=== PATIENT | male | born 1980 | race Caucasian/White ===

== ENCOUNTER 2016-11-22 09:47 | Emergency (ER) | payer SELFPAY ==
[~2016-11-22] VITALS: Ht 177.8 cm; Wt 104.3 kg
[~2016-11-22 09:47] MED LIST: METH5TAB2 PO
[2016-11-22 10:20] VITALS: BP 131/60
--- NOTE | 2016-11-22 10:27 | PHYS DOC ---
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 Patient states he was driving to [place] this morning when he developed palpitations. Patient states he felt his heart was pumping harder and faster. Patient states he takes energy drinks every day and had taken an energy drink earlier today. Patient denies any symptoms right now. As we talked informed patient will do some labs get an EKG as well as chest x-ray. Patient immediately requested to be discharged. Patient states he is feeling better. He states he has no symptoms right now. Informed him he will have sign out AMA considering he has not been worked up. He signed out AMA. Informed patient he can follow-up with his own primary care doctor or public weigher as soon as possible. Instructed him to return to the ED at any point he has concerning symptoms. Review of Systems Review of Systems Constitutional: Denies fever or chills [] Eyes: Denies change in visual acuity, redness, or eye pain [] HENT: Denies nasal congestion or sore throat [] Respiratory: Denies cough or shortness of breath [] Cardiovascular: Palpitations GI: Denies abdominal pain, nausea, vomiting, bloody stools or diarrhea [] : Denies dysuria or hematuria [] Musculoskeletal: Denies back pain or joint pain [] Integument: Denies rash or skin lesions [] Neurologic: Denies headache, focal weakness or sensory changes [] Endocrine: Denies polyuria or polydipsia [] Allergies Allergies Allergies Coded Allergies Type Severity Reaction Last Updated Verified aspirin Adverse Reaction Severe 06/30/13 Yes Physical Exam Physical Exam Constitutional: Well developed, well nourished, no acute distress, non-toxic appearance. [] HENT: Normocephalic, atraumatic, bilateral external ears normal, oropharynx moist, no oral exudates, nose normal. [] Eyes: PERRLA, EOMI, conjunctiva normal, no discharge. [] Neck: Normal range of motion, no tenderness, supple, no stridor. [] Cardiovascular:Heart rate regular rhythm, no murmur [] Lungs & Thorax: Bilateral breath sounds clear to auscultation [] Abdomen: Bowel sounds normal, soft, no tenderness, no masses, no pulsatile masses. [] Skin: Warm, dry, no erythema, no rash. [] Back: No tenderness, no CVA tenderness. [] Extremities: No tenderness, no cyanosis, no clubbing, ROM intact, no edema. [] Neurologic: Alert and oriented X 3, normal motor function, normal sensory function, no focal deficits noted. [] Psychologic: Affect normal, judgement normal, mood normal. [] Current Patient Data Vital Signs Vital Signs Date Time Temp Pulse Resp B/P Pulse Ox O2 Delivery O2 Flow Rate FiO2 11/22/16 09:55 99.2 77 18 147/89 98 Room Air 99.2 EKG EKG [] Radiology/Procedures Radiology/Procedures [] Course & Med Decision Making Course & Med Decision Making Pertinent Labs and Imaging studies reviewed. (See chart for details) Please see history of present illness. Patient signed out AMA when we told him was going to do labs, EKG, urine and chest x-ray. Dragon Disclaimer Dragon Disclaimer This electronic medical record was generated, in whole or in part, using a voice recognition dictation system. Departure Departure Impression: Primary Impression: Palpitations Disposition: 07 AGAINST MEDICAL ADVICE Condition: STABLE Referrals: NON,STAFF (PCP) Please follow-up with your doctor in the next 1-3 days. Patient Instructions: Palpitations, [id number] Additional Instructions: You were seen for palpitations. You decided to sign out AGAINST MEDICAL ADVICE. We will come back to the ED at any point if you choose to. ROSE MARY BREWER APRN Nov 22, 2016 10:27
--- NOTE | 2016-11-22 12:50 | EKG ---
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
== END 2016-11-22 10:33 | disposition left against medical advice (07) ==
LOC: ER 09:47
DX: R00.2 Palpitations (principal); F11.10 Opioid abuse, uncomplicated; Z88.6 Allergy status to analgesic agent; Z79.891 Long term (current) use of opiate analgesic
CPT/HCPCS: 93005; 99283-25